=== PATIENT | female | born 1965 | race Caucasian/White ===

== ENCOUNTER → 2018-08-25 | Outpatient (REF) | payer BC ==
[2018-08-25 17:45] LABS: BASO # 0.1 10^3/uL (0.0-0.2); BASO % 1.1 % (0.0-1.0); EOS # 0.1 10^3/uL (0.0-0.50); EOS % 1.6 % (0.0-3.0); HEMATOCRIT 40.9 % (36.0-47.0); HEMOGLOBIN 14.2 g/dl (12.0-15.5); LYMPH # 3.3 10^3/uL (1.5-4.5); LYMPH % 45.2 % (24.0-44.0); MEAN CORPUSCULAR HEMOGLOBIN 34.7 pg (27.0-33.0); MEAN CORPUSCULAR HGB CONC 34.7 g/dl (32.0-36.5); MONO # 0.8 10^3/uL (0.0-0.8); MONO % 10.4 % (0.0-5.0); NEUTROPHILS # 3.1 10^3/uL (1.8-7.7); NEUTROPHILS % 41.4 % (36.0-66.0); PLATELET COUNT, AUTOMATED 345 10^3/uL (150-450); RED BLOOD COUNT 4.09 10^6/uL (4.00-5.40); WHITE BLOOD COUNT 7.4 10^3/uL (4.0-10.0)
[2018-08-25 17:48] LABS: C REACTIVE PROTEIN QUANTITATIV < 0.30 MG/DL (0.00-0.30); RHEUMATOID FACTOR QUANT < 10.0 IU/ML (<15.0)
[2018-08-25 19:11] LABS: ERYTHROCYTE SEDIMENTATION RATE 4 mm/hr (0-30)
[2018-08-28 00:07] LABS: ANTINUCLEAR ANTIBODIES DIRECT Negative (Negative); Lyme Disease IgG/IgM Antibodie <0.91 ISR (0.00-0.90); Lyme Disease IgM Ab Quantitati <0.80 index (0.00-0.79)
== END ==
LOC: M LABDRAW1 16:53
PROVIDERS: ATTEND Orthopaedic Surgery
DX: M16.11 Unilateral primary osteoarthritis, right hip (principal)

== ENCOUNTER → 2018-10-01 | Outpatient (CLI) | payer BC ==
[~2018-10-01] MED LIST: CONRAY-43 43% 50ML VIAL (Q9960) As Ordered ONE; LIDOCAINE 1% MDV 20ML VIAL As Ordered ONE; PROHANCE 279.3MG/ML 5ML VIAL (A9576) As Ordered ONE
--- NOTE | 2018-10-01 10:51 | REP ---
MR arthrogram right hip: History: Right hip osteoarthritis. Comparison studies: No comparison radiographs . Technique: Precontrast imaging includes coronal T1 and T2-weighted scans of both hips. Postcontrast small field of view high resolution axial, coronal and sagittal images are acquired in T1 and T2-weighted scans with fat saturation. MR arthrographic findings: Pre injection imaging demonstrates that cortical and medullary bone signal intensity are normal in the proximal femurs bilaterally. There is no evidence to suggest avascular necrosis. There is marrow edema and a large subcortical cyst in the superior acetabulum on the right. This cyst measures 1.8 cm in greatest diameter. The T2 hyperintense marrow edema measures up to 4 cm in anteroposterior dimension. There is joint space narrowing and there is cartilage thinning superiorly in the right hip articulation. A small right hip joint effusion is noted compared to the left side. Head neck junction morphology is normal. Ligamentum teres appears intact. No acetabular labral cartilage tear is appreciated. No loose body is seen. No marrow edema is noted on the femoral side of the articulation. No juxtaarticular cyst or bursal fluid collection is appreciated. The uterus is tipped somewhat to the left. No abdominal wall defect or adnexal abnormality is observed. Visualized urinary bladder garcia are smooth. Impression: Osteoarthritic changes right hip with small right hip joint effusion. There is a large subcortical cyst in the superior acetabulum with an even larger area of surrounding marrow edema. There is joint space narrowing. No loose bodies seen. No labral tear identified. Electronically Signed by Bill Ga MD 10/01/2018 01:41 P
--- NOTE | 2018-10-01 16:37 | REP ---
Reason For Exam/Comment: Unilateral primary osteoarthritis Procedure: Left hip MRI arthrogram The procedure was performed by JOSÉ Ugalde, under the direct supervision of Dr. Ga. The benefits and risks including but not limited to pain, infection, bleeding and anaphylaxis were explained to the patient and informed consent was obtained both verbally and written. Directly prior to the start of the procedure, a formal timeout was completed in the procedure room. Technique: The left femoral neck was localized using fluoroscopic guidance. The skin was prepped and draped in the usual sterile fashion. 13 mL of 1% lidocaine was used as a local anesthetic. Using fluoroscopic guidance a 22-gauge spinal needle was inserted and advanced to the left femoral neck joint space . 3 mL of Conray 43 was injected to verify needle placement. 12 mL of a solution containing 20 ml of sterile saline and a 0.15 ml of ProHance was injected into the joint. The needle was removed and the patient was taken MRI for post procedural imaging. The patient tolerated the procedure well and there were no immediate complications. 0.2 minutes of fluoroscopy time was utilized for this procedure. Reviewed by JOSÉ Medina 10/01/2018 10:03 A Electronically Signed by Bill Ga MD 10/01/2018 04:28 P
== END ==
LOC: M RADPRO 06:40
PROVIDERS: ATTEND Orthopaedic Surgery
DX: M16.11 Unilateral primary osteoarthritis, right hip (principal); M25.451 Effusion, right hip; M71.351 Other bursal cyst, right hip
CPT/HCPCS: 27093; 73723; 77002; A9576; Q9960